=== PATIENT | female | born 1995 | race Hispanic/Latino ===

== ENCOUNTER 2018-01-10 20:23 | Emergency (ER) | payer MEDICARE ==
[~2018-01-10] VITALS: Ht 162.6 cm; Wt 77.1 kg
[2018-01-10 21:58] VITALS: BP 126/84
== END 2018-01-10 22:01 | disposition home or self-care (01) ==
LOC: ER 20:23
DX: O26.91 Pregnancy related conditions, unspecified, first trimester (principal); R09.81 Nasal congestion
CPT/HCPCS: 99282